=== PATIENT | male | born 1995 ===

== ENCOUNTER 2021-12-31 17:18 | Inpatient (IN) | payer MEDICAID ==
[2021-12-31] MEDS ORDERED: MAGNESIUM HYDROXIDE 2,400 MG/10 ML CUP PO PRN (19:08)
[2021-12-31] MEDS ORDERED: OLANZapine 5 MG TAB PO PRN (19:11)
[2021-12-31] MEDS ORDERED: OLANZapine 10 MG VIAL IM PRN (19:11)
--- NOTE | 2022-01-01 04:28 | P.MDCNMH ---
History of Present Illness H&P Date: 01/01/22 Chief Complaint: Suicidal ideation 26-year-old male with history of asthma and depression Patient comes in due to suicidal ideation. Patient doesn't go over details however he is requesting inhalers for his history of asthma. When asked he reports that he rarely uses inhalers however he feels that his chest is tight and requesting some inhalers. Otherwise he denies any coughing fevers chills nausea vomiting sore throat and runny nose. Denies any abdominal pain changes in bowel urinary habits denies any GI bleeding Review of Systems Pertinent positives as noted in HPI. All other systems were reviewed and are negative Past Medical History Past Medical History: Asthma Additional Past Medical History / Comment(s): unknown; pt is a poor historian History of Any Multi-Drug Resistant Organisms: Unobtainable Additional Past Surgical History / Comment(s): unknown; pt is a poor historian Additional Past Anesthesia/Blood Transfusion Reaction / Comment(s): unknown; pt is a poor historian Past Psychological History: Schizophrenia Smoking Status: Current every day smoker Past Alcohol Use History: Occasional Past Drug Use History: Marijuana Additional Drug Use History / Comment(s): UDDS + marijuana - Past Family History Family Additional Family Medical History / Comment(s): No reported heart disease or lung disease Medications and Allergies Home Medications Medication Instructions Recorded Confirmed Type No Known Home Medications 01/01/22 01/01/22 History Allergies Allergy/AdvReac Type Severity Reaction Status Date / Time No Known Allergies Allergy Verified 01/01/22 00:54 Physical Exam Vitals: Vital Signs Temp Pulse Resp BP Pulse Ox 01/01/22 00:08 97.1 F L 96 16 143/92 98 Intake and Output 12/31/21 12/31/21 01/01/22 14:59 22:59 06:59 Other: Weight 113.4 kg 111.782 kg Constitutional: No acute distress, Eyes: Anicteric sclerae, moist conjunctiva, Pupils equal round reactive to light ENMT: NC/AT Oropharynx clear, no erythema, or exudates Neck: Supple no masses, or JVD No carotid bruits No thyromegaly Lungs: Clear to auscultation Clear to percussion Normal respiratory effort, no accessory muscle use Cardiovascular: Heart regular in rate and rhythm, No murmurs, gallops, or rubs No peripheral edema Abdominal: Soft Nontender, no guarding, rebound or rigidity Abdomen moving with respiration Normoactive bowel sounds No hepatomegaly, No splenomegaly No palpable mass No abdominal wall hernia noted Skin: Normal temperature, tone, texture, turgor No induration No subcutaneous nodules No rash, lesions No ulcers Extremities: No digital cyanosis No clubbing Pedal pulses intact and symmetrical Radial pulses intact and symmetrical No calf tenderness Psychiatric: Alert and oriented to person, place and time Flat affect Neuro Muscles Strength 5/5 in all 4 extremities Sensation to light touch grossly present throughout Cranial nerves II-XII grossly intact No focal sensory deficits Cranial Nerve Examination - Cranial Nerves Cranial Nerve II- Optic: Intact Cranial Nerve III- Oculomotor: Intact Cranial Nerve IV- Trochlear: Intact Cranial Nerve V- Trigeminal: Intact Cranial Nerve - Abducens: Intact Cranial Nerve VII- Facial: Intact Cranial Nerve VIII- Auditory: Intact Cranial Nerve IX- Glossopharyngeal: Intact Cranial Nerve X- Vagus: Intact Cranial Nerve XI- Accessory: Intact Cranial Nerve XII- Hypoglossal: Intact Assessment and Plan Assessment: Suicidal ideation and depression Management per psych Intermittent asthma Albuterol inhaler when necessary DVT prophylaxis ambulatory Tobacco smoking patient counseled to quit smoking Nicotine replacement therapy offered Follow-up labs Thank you for allowing us to participate in the care of this patient. We will follow peripherally. Do not hesitate to contact us with questions. Someone can be reached from the [facility] hospitalist group at all hours of the day at [phone].
[2022-01-01] MEDS ORDERED: ALBUTEROL INHALER 60 PUFF/8 GM INHALER (MHU) INHALATION PRN (04:29)
[2022-01-01] MEDS: hydrOXYzine pamoate 25 MG CAP PO PRN (05:33)
[2022-01-01] MEDS: NICOTINE 14MG/24HR PATCH TRANSDERM SCH (05:34)
[2022-01-01] MEDS: DIVALPROEX 500 MG TABLET.DR PO SCH ×2 (08:31→20:23)
[2022-01-01] MEDS ORDERED: DULoxetine HCL 20 MG CAPSULE.DR PO SCH (09:00)
[2022-01-01] MEDS ORDERED: BENZTROPINE MESYLATE 1 MG TAB PO SCH (09:00)
[2022-01-01] MEDS ORDERED: risperiDONE 2 MG TAB PO SCH (09:00)
[2022-01-01] MEDS: clonazePAM 1 MG TAB PO SCH ×3 (09:24→21:05)
[2022-01-01] MEDS: NICOTINE GUM (POLACRILEX) 2 MG GUM BUCCAL PRN ×2 (09:26→19:42)
[2022-01-01] MEDS ORDERED: cloZAPine 100 MG TAB PO SCH ×2 (10:00→21:00)
[2022-01-01 10:26] LABS: Basophils % (A) 0 %; Eosinophils # (A) 0.1 k/uL (0-0.7); Eosinophils % (A) 1 %; HCT 44.9 % (39.0-53.0); HGB 14.2 gm/dL (13.0-17.5); Lymphocytes # (A) 1.9 k/uL (1.0-4.8); Lymphocytes % (A) 31 %; MCH 28.9 pg (25.0-35.0); MCHC 31.6 g/dL (31.0-37.0); MCV 91.5 fL (80.0-100.0); Monocytes # (A) 0.6 k/uL (0-1.0); Monocytes % (A) 9 %; Neutrophils # (A) 3.5 k/uL (1.3-7.7); Neutrophils % (A) 57 %; Platelet Count 325 k/uL (150-450); RBC 4.91 m/uL (4.30-5.90); RDW 12.3 % (11.5-15.5); WBC 6.2 k/uL (3.8-10.6)
[2022-01-01] MEDS: ACETAMINOPHEN TAB 325 MG TAB PO PRN (10:35)
[2022-01-01 10:37] LABS: ALT 83 U/L (4-49); AST 59 U/L (17-59); African American GFR (CKD) >90 (>60 ml/min/1.73 sqM); Albumin 4.7 g/dL (3.5-5.0); Alkaline Phosphatase 34 U/L (38-126); Anion Gap 13 mmol/L; Bilirubin, Delta 0.1 mg/dL (0.0-0.2); Bilirubin,Unconjugated 0.7 mg/dL (0.0-1.1); Blood Urea Nitrogen 13 mg/dL (9-20); Calcium 9.5 mg/dL (8.4-10.2); Carbon Dioxide 23 mmol/L (22-30); Chloride 104 mmol/L (98-107); Glucose 94 mg/dL (74-99); Non-African American GFR(CKD) >90 (>60 ml/min/1.73 sqM); Potassium 4.6 mmol/L (3.5-5.1); Sodium 140 mmol/L (137-145); Total Bilirubin 0.8 mg/dL (0.2-1.3); Total Protein 6.9 g/dL (6.3-8.2)
[2022-01-01 10:42] LABS: Valproic Acid (Depakene) 63.4 ug/mL
[2022-01-01] MEDS ORDERED: chlorproMAZINE 25 MG/ML 1 ML AMP IM PRN (10:43)
[2022-01-01] MEDS ORDERED: chlorproMAZINE 25 MG TAB PO PRN (10:43)
--- NOTE | 2022-01-01 11:08 | P.HP ---
Psychiatric H&P - . H&P Date: 01/01/22 History & Physical: Allergies Allergy/AdvReac Type Severity Reaction Status Date / Time No Known Allergies Allergy Verified 01/01/22 00:54 Vital Signs Temp 97.1 F L 01/01/22 00:08 Pulse 96 01/01/22 00:08 Resp 16 01/01/22 00:08 BP 143/92 01/01/22 00:08 Pulse Ox 98 01/01/22 00:08 FiO2 Intake & Output 12/31/21 01/01/22 01/01/22 18:59 06:59 18:59 Weight 111.782 kg Laboratory Last Values WBC 6.2 k/uL (3.8-10.6) 01/01/22 09:32 RBC 4.91 m/uL (4.30-5.90) 01/01/22 09:32 Hgb 14.2 gm/dL (13.0-17.5) 01/01/22 09:32 Hct 44.9 % (39.0-53.0) 01/01/22 09:32 MCV 91.5 fL (80.0-100.0) 01/01/22 09:32 MCH 28.9 pg (25.0-35.0) 01/01/22 09:32 MCHC 31.6 g/dL (31.0-37.0) 01/01/22 09:32 RDW 12.3 % (11.5-15.5) 01/01/22 09:32 Plt Count 325 k/uL (150-450) 01/01/22 09:32 MPV 7.0 01/01/22 09:32 Neutrophils % 57 % 01/01/22 09:32 Lymphocytes % 31 % 01/01/22 09:32 Monocytes % 9 % 01/01/22 09:32 Eosinophils % 1 % 01/01/22 09:32 Basophils % 0 % 01/01/22 09:32 Neutrophils # 3.5 k/uL (1.3-7.7) 01/01/22 09:32 Lymphocytes # 1.9 k/uL (1.0-4.8) 01/01/22 09:32 Monocytes # 0.6 k/uL (0-1.0) 01/01/22 09:32 Eosinophils # 0.1 k/uL (0-0.7) 01/01/22 09:32 Basophils # 0.0 k/uL (0-0.2) 01/01/22 09:32 Sodium 140 mmol/L (137-145) 01/01/22 09:32 Potassium 4.6 mmol/L (3.5-5.1) 01/01/22 09:32 Chloride 104 mmol/L (98-107) 01/01/22 09:32 Carbon Dioxide 23 mmol/L (22-30) 01/01/22 09:32 Anion Gap 13 mmol/L 01/01/22 09:32 BUN 13 mg/dL (9-20) 01/01/22 09:32 Creatinine 0.88 mg/dL (0.66-1.25) 01/01/22 09:32 Est GFR (CKD-EPI)AfAm >90 (>60 ml/min/1.73 sqM) 01/01/22 09:32 Est GFR (CKD-EPI)NonAf >90 (>60 ml/min/1.73 sqM) 01/01/22 09:32 Glucose 94 mg/dL (74-99) 01/01/22 09:32 Calcium 9.5 mg/dL (8.4-10.2) 01/01/22 09:32 Total Bilirubin 0.8 mg/dL (0.2-1.3) 01/01/22 09:32 Conjugated Bilirubin 0.0 mg/dL (0.0-0.3) 01/01/22 09:32 Unconjugated Bilirubin 0.7 mg/dL (0.0-1.1) 01/01/22 09:32 Delta Bilirubin 0.1 mg/dL (0.0-0.2) 01/01/22 09:32 AST 59 U/L (17-59) 01/01/22 09:32 ALT 83 U/L (4-49) H 01/01/22 09:32 Alkaline Phosphatase 34 U/L (38-126) L 01/01/22 09:32 Total Protein 6.9 g/dL (6.3-8.2) 01/01/22 09:32 Albumin 4.7 g/dL (3.5-5.0) 01/01/22 09:32 TSH 2.460 mIU/L (0.465-4.680) 01/01/22 09:32 Valproic Acid 63.4 ug/mL 01/01/22 09:32 01/01/22 11:07 IDENTIFYING DATA: Patient is a single, unemployed, 26-year-old male with significant history of developmental disability who has a guardian who was transferred from [facility] for suicidal ideation and psychosis. HPI: Patient presented to this hospital on 01/01/2022 after initially presenting at [facility] for psychiatric evaluation. Reportedly, the patient was endorsing suicidal ideation after a verbal altercation with his mother and decided to go to the hospital. He endorsed suicidal thoughts and during his initial assessment there, the patient was noted to be expressing significant psychotic symptoms. He was petitioned and certified. As per certificate, "patient suffers from schizophrenia and is psychotic with rambling thoughts and at times feel suicidal. He is noncompliant with psychiatric medications." Once admitted on the psychiatric unit, the patient was initially noted to be irritable in the milieu and was physically intrusive with another peer. He was however redirected and administered IM medication. On evaluation by this provider, the patient reports that he was staying at home with his mother however felt that he was very annoyed by her and her constant nagging. He states that he felt suicidal and decided to come to the hospital. He is otherwise not reporting any depressive symptoms. It is unclear as to how many times the patient has attempted suicide in the past. He does however appear to be responding to internal stimuli and states that he hears "6 voices." He refuses to further elaborate and appears to be laughing during the psychiatric interview and is difficult to redirect. Patient does admit that he has been non-adherent with any treatment in the outpatient setting and has been non- adherent with any medications. As per pharmacy review, the patient is reportedly not had any of his psychotropic medications filled in 2021 aside from the Cymbalta. A second clinical certificate has been filled out by this provider. PAST PSYCHIATRIC HISTORY: Patient states that he has been recently diagnosed with schizophrenia. The patient's home medications include Cymbalta, Risperdal, and Clozaril however the patient has not had any medications filled in 2021 aside from Cymbalta. The patient has reportedly had multiple inpatient psychiatric admissions however we're uncertain as to his last admission. The patient is not currently open with any outpatient psychiatric services. Unable to determine previous suicide attempts. PMH: Past Medical History: Asthma Additional Past Medical History / Comment(s): unknown; pt is a poor historian History of Any Multi-Drug Resistant Organisms: Unobtainable Additional Past Surgical History / Comment(s): unknown; pt is a poor historian Additional Past Anesthesia/Blood Transfusion Reaction / Comment(s): unknown; pt is a poor historian Past Psychological History: Schizophrenia Smoking Status: Current every day smoker Past Alcohol Use History: Occasional Past Drug Use History: Marijuana Additional Drug Use History / Comment(s): UDDS + marijuana ALLERGIES: NO KNOWN DRUG ALLERGIES CHEMICAL DEPENDENCY HISTORY: The patient reports smoking half pack per day. He also was reportedly using marijuana daily. No other drug use or substance use disorders are reported. FAMILY PSYCHIATRIC/SUBSTANCE USE HISTORY: Unknown SOCIAL HISTORY: Patient is currently living with his mother who is his guardian. He is single, never , and has no children. MENTAL STATUS EXAM: General Appearance: Patient appears to be stated age is alert, directable, and attempts to cooperate. Patient appears to have very poor hygiene and grooming. Obese body habitus. Behavior: Patient displays psychomotor agitation. Speech: Patient's speech is hyperverbal, tangential, however monotone. Mood/Affect: Patient reports their mood is "I need to go home." Affect is childlike. Suicidality/Homicidality: Patient is currently denying any suicidal or homicidal ideation. Perceptions: Patient denies any visual hallucinations however he endorses auditory hallucinations. Though content/process: The patient appears to be responding to internal stimuli. He is also fixated on smoking cigarettes. Memory and concentration: AOX3, grossly intact for the purposes of this session. Can spell "WORLD" backwards Judgment and insight: Very poor STRENGTHS/WEAKNESSES: Unable to identify patient's strengths at this time. Weakness is that the patient is nonadherent with treatment. INTELLECT: Below average IMPRESSIONS: Schizophrenia Developmental disability Tobacco use disorder Cannabis use disorder PLAN: -Patient is admitted under involuntary status to [facility] for stabilization of psychiatric symptoms and safety. A second certification was completed and along with petition will be filed for court. -Medications : Will start patient on Risperdal 3 mg by mouth twice a day for psychosis/mood stabilization with plans to transition to Invega Sustenna. Depakote 500 mg by mouth twice a day for mood stabilization Klonopin 1 mg by mouth 3 times a day for acute anxiety/agitation Discontinue Cymbalta due to concerns for polypharmacy. We will discontinue Clozaril and Cogentin as the patient has not taken this medication over the past year. -Vistaril and Thorazine PRN for agitation/aggression -Patient was counselled on substance abuse -Patient was informed of the risks, benefits and side effects of the medication and patient verbally consented to taking the medications. Patient signed med consent form and was placed in chart. -Internal Medicine consult to perform medical evaluation and physical. -NRT - nicotine patch and Nicorette gum -SW on board for discharge planning. Encourage patient to participate in groups to work on coping skills. 01/01/22 11:07
[2022-01-01 15:16] LABS: Chol/HDL Ratio 4.54 Ratio; LDL Cholesterol,Calculated 87.2 mg/dL (0.0-131.0)
[2022-01-01] MEDS ORDERED: chlorproMAZINE 25 MG/ML 2 ML AMP IM PRN (16:35)
[2022-01-01] MEDS: hydrOXYzine HCL 50 MG/ML 1 ML VIAL IM PRN (16:39)
[2022-01-01] MEDS: risperiDONE 1 MG TAB PO SCH (20:23)
[2022-01-01] MEDS ORDERED: chlorproMAZINE 25 MG/ML 1 ML AMP IM STA (20:53)
[2022-01-02] MEDS: chlorproMAZINE 25 MG/ML 1 ML AMP IM PRN (04:22)
[2022-01-02] MEDS: hydrOXYzine HCL 50 MG/ML 1 ML VIAL IM PRN (04:24)
[2022-01-02] MEDS: clonazePAM 1 MG TAB PO SCH ×3 (08:16→21:03)
[2022-01-02] MEDS: DIVALPROEX 500 MG TABLET.DR PO SCH ×2 (08:16→20:01)
[2022-01-02] MEDS: risperiDONE 1 MG TAB PO SCH ×2 (08:16→20:01)
[2022-01-02] MEDS: NICOTINE 14MG/24HR PATCH TRANSDERM SCH (08:17)
[2022-01-02] MEDS ORDERED: cloZAPine 100 MG TAB PO SCH (09:00)
[2022-01-02] MEDS: NICOTINE GUM (POLACRILEX) 2 MG GUM BUCCAL PRN ×2 (09:20→14:00)
[2022-01-02] MEDS: hydrOXYzine pamoate 25 MG CAP PO PRN ×2 (10:56→19:56)
[2022-01-02] MEDS ORDERED: chlorproMAZINE 25 MG/ML 2 ML AMP IM PRN (12:07)
[2022-01-02] MEDS: chlorproMAZINE 25 MG TAB PO PRN ×2 (15:02→22:47)
[2022-01-02] MEDS: ACETAMINOPHEN TAB 325 MG TAB PO PRN (21:03)
[2022-01-03] MEDS: hydrOXYzine pamoate 25 MG CAP PO PRN (02:24)
[2022-01-03] MEDS: NICOTINE GUM (POLACRILEX) 2 MG GUM BUCCAL PRN ×5 (03:22→17:05)
[2022-01-03] MEDS: chlorproMAZINE 25 MG/ML 1 ML AMP IM PRN (05:00)
[2022-01-03] MEDS: risperiDONE 1 MG TAB PO SCH ×2 (08:49→20:07)
[2022-01-03] MEDS: DIVALPROEX 500 MG TABLET.DR PO SCH ×2 (08:49→20:08)
[2022-01-03] MEDS: clonazePAM 1 MG TAB PO SCH ×3 (08:57→21:00)
[2022-01-03] MEDS: MAG HYDROX/AL HYDROX/SIMETH 30 ML CUP PO PRN (11:33)
--- NOTE | 2022-01-03 11:35 | P.PN ---
Subjective Progress Note Date: 01/03/22 Principal diagnosis: Diagnosis: schizophrenia Subjective: It was very hard to understand anything he said first he mumbles then he rambles. He not only has flight of ideas he almost has word salad, none of his thoughts fit together. The best I could tell he doesn't understand why he can't go home. Objective: The patient was pacing the halls intrusive, looked sleepy, and mum bled when he talked. We had increased his Thorazine and he may be a little bit more sleepy but is hard to tell if it's helping at all with his logic or self- control or orientation.. He had no eye contact. Self-care was minimal. nursing observations:Patient continuing with increased aggression. Patient told global technical writer "you're maris you're a female or I'd beat your a". Patient was refusing to be redirected.Patient was trying to get into another patient's room. Patient had the other patient's bedroom door open and was arguing with the other patient. Home Visitor told patient to go to his room. Patient went around the corner and came running back making verbal and hand/arm gestures as if he was shooting up the other patient's room. He is somewhat aware that he is not doing well and even approached staff to ask for a medication "to calm him down". Assessment still not doing very well at all. Plan continue was a high dose of Thorazine hoping it will begin to kick in any further increase and he would be falling asleep in the [place]. Objective - Vital Signs Vital signs: Vital Signs Temp 97.6 F 01/03/22 02:29 Pulse 122 H 01/03/22 02:29 Resp 16 01/03/22 02:29 BP 109/66 01/03/22 02:29 Pulse Ox 96 01/03/22 02:29 FiO2 - Labs CBC & Chem 7: 01/01/22 09:32 01/01/22 09:32
[2022-01-03] MEDS: NICOTINE 14MG/24HR PATCH TRANSDERM SCH (14:48)
[2022-01-03] MEDS: ACETAMINOPHEN TAB 325 MG TAB PO PRN (19:32)
[2022-01-03] MEDS: chlorproMAZINE 25 MG TAB PO PRN (20:07)
[2022-01-04] MEDS: hydrOXYzine pamoate 25 MG CAP PO PRN ×3 (03:26→22:19)
[2022-01-04] MEDS: chlorproMAZINE 25 MG TAB PO PRN (03:30)
[2022-01-04] MEDS: NICOTINE GUM (POLACRILEX) 2 MG GUM BUCCAL PRN ×3 (05:28→20:57)
[2022-01-04] MEDS: risperiDONE 1 MG TAB PO SCH (09:22)
[2022-01-04] MEDS ORDERED: chlorproMAZINE 25 MG TAB PO PRN (09:22)
[2022-01-04] MEDS: NICOTINE 14MG/24HR PATCH TRANSDERM SCH (09:22)
[2022-01-04] MEDS: DIVALPROEX 500 MG TABLET.DR PO SCH (09:22)
[2022-01-04] MEDS ORDERED: chlorproMAZINE 25 MG/ML 1 ML AMP IM PRN (09:22)
[2022-01-04] MEDS: clonazePAM 1 MG TAB PO SCH (09:22)
--- NOTE | 2022-01-04 11:18 | P.PN ---
Progress Note - Text Progress Note Date: 01/04/22 Interval History: Patient was seen wandering the hallways and was directable and agreeable to speak with senior technical writer in the office. The patient received approximately 200 mg IM of Thorazine over the last 8 hours prior to speaking with this provider. The patient was quite sedated and somnolent during the psychiatric interview. As per nursing report, the patient has been intermittently agitated and difficult to redirect requiring the administration of IM medication. He has been noted by staff to be aggressive towards other patients and has verbalized threats towards others. He is unable to fully participate in the psychiatric interview today but states his provider "just give me the Maria M valle so I can get out of this bi*ch." Mental Status Exam: General Appearance: Patient appears to be stated age, obese body habitus, difficult to direct, and somnolent. Behavior: Patient appears quite somnolent and begin sleeping while seated in the chair in the interview room. Speech: Patient's speech is slurred. Mood/Affect: Mood is "annoyed," affect is somnolent. Suicidality/Homicidality: Could not assess Perceptions: Could not assess Though content/process: Could not assess Memory and concentration: AOX3, grossly intact for the purposes of this session Judgment and insight: Very poor Vital Signs Temp 97.6 F 01/03/22 02:29 Pulse 122 H 01/03/22 02:29 Resp 16 01/03/22 02:29 BP 109/66 01/03/22 02:29 Pulse Ox 96 01/03/22 02:29 FiO2 Assessment Schizophrenia Developmental disability Tobacco use disorder Cannabis use disorder Plan: -Patient continues to meet criteria for inpatient psychiatric admission for symptom stabilization and safety. Patient has been petitioned and certified. -Medications: Increase Risperdal to 4 mg by mouth twice a day for psychosis/mood stabilization Increase Depakote to 750 mg by mouth twice a day for mood stabilization Discontinue Klonopin due to concerns for per paradoxical reaction -When necessary Ativan and Thorazine for agitation/aggression. -NRT - nicotine patch and Nicorette gum -SW on board for discharge planning. Encouraged the patient to participate in milieu.
[2022-01-04] MEDS: risperiDONE 2 MG TAB PO SCH (20:00)
[2022-01-04] MEDS: DIVALPROEX 250 MG TABLET.DR PO SCH (20:01)
[2022-01-05] MEDS: NICOTINE GUM (POLACRILEX) 2 MG GUM BUCCAL PRN ×2 (03:03→21:32)
[2022-01-05] MEDS: risperiDONE 2 MG TAB PO SCH ×2 (07:58→20:49)
[2022-01-05] MEDS: NICOTINE 14MG/24HR PATCH TRANSDERM SCH (07:58)
[2022-01-05] MEDS: DIVALPROEX 250 MG TABLET.DR PO SCH ×2 (07:59→20:49)
--- NOTE | 2022-01-05 11:03 | P.PN ---
Progress Note - Text Progress Note Date: 01/05/22 Interval History: Patient was seen wandering the hallways and was directable and agreeable to speak with leader writer in the office. Patient continues to require the administration of IM medications due to agitation and attempts to elope the psychiatric unit. He has been difficult to redirect by staff. Again during this evaluation today, the patient has noted to be quite somnolent but not a somnolent yesterday. Some of his words appeared to be slurred and the history is difficult to elicit. However, the patient is denying any suicidal or homicidal ideation, intention, and/or plan. He is not reporting any auditory or visual hallucinations. He is not reporting any paranoia or other delusions however has poor comprehension of the reality around him and his need for psychiatric hospitalization. He has been adherent with his medication and is not reporting any significant side effects. The patient has been noted to be sleeping poorly, approximating only a few hours of sleep per night. There is also concerned that the patient has sleep apnea. Mental Status Exam: General Appearance: Patient appears to be stated age, obese body habitus, difficult to direct, and somnolent. Behavior: Patient appears somnolent but not as somnolent and is yesterday. Speech: Patient's speech is slurred. Mood/Affect: Mood is "just give me the shot so I can go," affect is irritable. Suicidality/Homicidality: Patient denies any suicidal or homicidal ideation. Perceptions: Patient denies any auditory or visual hallucinations. Though content/process: [place]. Patient is not reporting any overt delusional thought content. Memory and concentration: AOX3, grossly intact for the purposes of this session Judgment and insight: Very poor Vital Signs Temp 97.9 F 01/05/22 03:04 Pulse 124 H 01/05/22 03:04 Resp 16 01/05/22 03:04 BP 141/79 01/05/22 03:04 Pulse Ox 100 01/05/22 03:04 FiO2 Assessment Schizophrenia Developmental disability Tobacco use disorder Cannabis use disorder Plan: -Patient continues to meet criteria for inpatient psychiatric admission for symptom stabilization and safety. Patient has been petitioned and certified. -Medications: Continue Risperdal to 4 mg by mouth twice a day for psychosis/mood stabilization Continue Depakote to 750 mg by mouth twice a day for mood stabilization Start Trazodone 100 mg at bedtime for insomnia -EKG ordered as patient received numerous IM antipsychotics. -When necessary Ativan and Thorazine for agitation/aggression. Thorazine decreased to 50 mg. -NRT - nicotine patch and Nicorette gum -SW on board for discharge planning. Encouraged the patient to participate in milieu.
[2022-01-05] MEDS: ACETAMINOPHEN TAB 325 MG TAB PO PRN (12:32)
--- NOTE | 2022-01-05 12:55 | P.PN ---
Subjective Progress Note Date: 01/02/22 Principal diagnosis: Diagnosis: schizophrenia Subjective: It was very hard to understand anything he said first he mumbles then he rambles. The best I could tell he doesn't understand why he can't go home. Objective: The patient was pacing the halls intrusive, looked sleepy, and mumbled when he talked. An example of his speech was, "they make me clean, I was cleaning all night, I had to defend people, see my arm." When asked him what he meant by all that he rambled off in another direction then got up and walked out of the session. Last night he became so aggressive and agitated that we had to give a next her dose of Thorazine when necessary. He had no eye contact. Self-care was minimal. Last night he was cursing and threatening staff and attempted to stuff things in the toilet so he could flood the place demanding to be let out. Assessment still not doing very well at all. Plan continue to cover when necessary. Objective - Vital Signs Vital signs: Vital Signs Temp 97.8 F 01/02/22 05:37 Pulse 127 H 01/02/22 05:37 Resp 16 01/02/22 05:37 BP 143/92 01/01/22 00:08 Pulse Ox 96 01/02/22 05:37 FiO2 - Labs CBC & Chem 7: 01/01/22 09:32 01/01/22 09:32 Labs: Abnormal Lab Results - Last 24 Hours (Table) 01/01/22 Range/Units 09:32 ALT 83 H (4-49) U/L Alkaline Phosphatase 34 L (38-126) U/L HDL Cholesterol 32.80 L (40.00-60.00) mg/dL
[2022-01-05] MEDS: hydrOXYzine pamoate 25 MG CAP PO PRN (16:34)
[2022-01-05] MEDS ORDERED: traZODone HCL 100 MG TAB PO SCH (21:00)
[2022-01-06] MEDS ORDERED: HALOPERIDOL LACTATE 5 MG/ML 1 ML VIAL IM ONE (01:29)
[2022-01-06] MEDS ORDERED: diphenhydrAMINE 50 MG/ML 1 ML VIAL IM ONE (01:30)
[2022-01-06] MEDS ORDERED: LORazepam 2 MG/ML INJ IM ONE (01:30)
[2022-01-06] MEDS: DIVALPROEX 250 MG TABLET.DR PO SCH (09:20)
[2022-01-06] MEDS: NICOTINE 14MG/24HR PATCH TRANSDERM SCH (09:20)
[2022-01-06] MEDS: risperiDONE 2 MG TAB PO SCH (09:20)
[2022-01-06] MEDS ORDERED: PALIPERIDONE IM 234 MG/1.5 ML SYG IM STA (09:41)
--- NOTE | 2022-01-06 12:23 | P.PN ---
Progress Note - Text Progress Note Date: 01/06/22 Interval History: Patient was seen wandering the hallways and was directable and agreeable to speak with board writer in the office. The patient continues to require the administration of medications for agitation. He has been noted to be sleeping very poorly. It is noted that he only receives approximately 3 hours of sleep per night. He continues to be intrusive with peers. He is currently denying any suicidal or homicidal ideation. He reports no auditory or visual hallucinations. He denies any paranoia or other delusions. The patient continues to wish for discharge. He is however directable today. Mental Status Exam: Patient continues to present as somnolent. General Appearance: Patient appears to be stated age, obese body habitus, more directable, but somnolent. Behavior: Patient appears somnolent but not as somnolent and is yesterday. Speech: Patient's speech is slurred. Mood/Affect: Mood is "just tired." affect is somnolent. Suicidality/Homicidality: Patient denies any suicidal or homicidal ideation. Perceptions: Patient denies any auditory or visual hallucinations. Though content/process: [place]. Patient is not reporting any overt delusional thought content. Memory and concentration: AOX3, grossly intact for the purposes of this session Judgment and insight: Very poor Vital Signs Temp 97.7 F 01/06/22 09:23 Pulse 103 H 01/06/22 09:23 Resp 14 01/06/22 09:23 BP 127/80 01/06/22 09:23 Pulse Ox 97 01/06/22 09:23 FiO2 Assessment Schizophrenia Developmental disability Tobacco use disorder Cannabis use disorder Plan: -Patient continues to meet criteria for inpatient psychiatric admission for symptom stabilization and safety. Patient has been petitioned and certified. Court is scheduled for 01/12/2022. -Medications: Discontinue Risperdal. We will administer Invega Sustenna 234 mg IM today. Change Depakote to 1500 mg by mouth at bedtime for mood stabilization Increase Trazodone to 200 mg at bedtime for insomnia -EKG ordered as patient received numerous IM antipsychotics. -When necessary Thorazine and Vistaril for agitation/aggression. Our concern is that benzodiazepines may contribute to the patient's sleep apnea. -NRT - nicotine patch and Nicorette gum -SW on board for discharge planning. Encouraged the patient to participate in milieu.
[2022-01-06] MEDS: hydrOXYzine pamoate 25 MG CAP PO PRN (12:44)
[2022-01-06] MEDS: NICOTINE GUM (POLACRILEX) 2 MG GUM BUCCAL PRN (14:52)
[2022-01-06] MEDS: ACETAMINOPHEN TAB 325 MG TAB PO PRN (17:01)
[2022-01-06 17:39] LABS: Glucose,Whole Blood 84 mg/dL (70-110)
[2022-01-06] MEDS: traZODone HCL 100 MG TAB PO SCH (21:07)
[2022-01-06] MEDS: DIVALPROEX ER 500 MG TAB.ER.24H PO SCH (21:08)
[2022-01-06] MEDS: MELATONIN 5 MG TABLET PO SCH (21:08)
[2022-01-06] MEDS: chlorproMAZINE 25 MG/ML 1 ML AMP IM PRN (21:28)
[2022-01-06] MEDS: hydrOXYzine HCL 50 MG/ML 1 ML VIAL IM PRN (21:29)
[2022-01-07] MEDS: NICOTINE 14MG/24HR PATCH TRANSDERM SCH (09:22)
--- NOTE | 2022-01-07 10:04 | P.PN ---
Progress Note - Text Progress Note Date: 01/07/22 Interval History: Patient was seen wandering the hallways and was directable and agreeable to speak with marketing writer in the office. The patient continues to be noted by staff to be very intrusive with peers. He was noted to be female patient was redirected back to his room. The patient has had improved sleep last night. Currently, he is not reporting any suicidal or homicidal ideation, intention, and/or plan. He is not reporting any auditory or visual hallucinations. The patient has been adherent with his medications and is not reporting any significant side effects at this time. He did receive Invega Sustenna yesterday. Mental Status Exam: General Appearance: Patient appears to be stated age is alert, directable, and cooperative. Behavior: Patient is calmly seated without any agitated behavior. Speech: Patient's speech is slurred and at times difficult to understand. Nonlinear. Mood/Affect: Mood is improving mildly, affect is congruent and constricted. Suicidality/Homicidality: Patient denies having any suicidal or homicidal ideation intent or plan. Perceptions: Patient denies any visual hallucinations and denies any auditory hallucinations Though content/process: There is no evidence of any delusional thought content and thought process is linear and goal-directed. [place]. Memory and concentration: AOX3, grossly intact for the purposes of this session Judgment and insight: Improving mildly Vital Signs Temp 97.7 F 01/06/22 09:23 Pulse 103 H 01/06/22 09:23 Resp 14 01/06/22 09:23 BP 127/80 01/06/22 09:23 Pulse Ox 97 01/06/22 09:23 FiO2 Laboratory Results - Last 24 Hours 01/06/22 17:31 POC Glucose (mg/dL) 84 POC Glu Rack Cleaner ID Cora Montesinos Assessment Schizophrenia Developmental disability Tobacco use disorder Cannabis use disorder Plan: -Patient continues to meet criteria for inpatient psychiatric admission for symptom stabilization and safety. Patient is scheduled for court on 01/12/2022. -Medications: Invega Sustenna 234 mg IM was administered on 01/06/2022. Next dose will be administered on 01/11/2022. Continue Depakote 1500 mg by mouth at bedtime for mood stabilization Continue Trazodone 200 mg at bedtime for insomnia Cogentin 1 mg by mouth twice a day for EPS side effects. -When necessary Thorazine and Vistaril for agitation/aggression. Our concern is that benzodiazepines may contribute to the patient's sleep apnea. -EKG reviewed. Sinus tachycardia with a QTC within normal limits. -NRT - nicotine patch and Nicorette gum -SW on board for discharge planning. Encouraged the patient to participate in milieu.
[2022-01-07] MEDS: hydrOXYzine pamoate 25 MG CAP PO PRN ×2 (12:00→19:27)
[2022-01-07] MEDS: NICOTINE GUM (POLACRILEX) 2 MG GUM BUCCAL PRN (15:49)
[2022-01-07] MEDS: traZODone HCL 100 MG TAB PO SCH (20:18)
[2022-01-07] MEDS: BENZTROPINE MESYLATE 1 MG TAB PO SCH (20:18)
[2022-01-07] MEDS: MELATONIN 5 MG TABLET PO SCH (20:18)
[2022-01-07] MEDS: DIVALPROEX ER 500 MG TAB.ER.24H PO SCH (20:18)
[2022-01-07] MEDS: chlorproMAZINE 25 MG TAB PO PRN (21:29)
[2022-01-08] MEDS: hydrOXYzine pamoate 25 MG CAP PO PRN ×3 (00:11→23:34)
[2022-01-08] MEDS: ACETAMINOPHEN TAB 325 MG TAB PO PRN ×2 (00:11→08:25)
[2022-01-08] MEDS: NICOTINE GUM (POLACRILEX) 2 MG GUM BUCCAL PRN ×4 (00:12→20:24)
[2022-01-08] MEDS: BENZTROPINE MESYLATE 1 MG TAB PO SCH ×2 (07:48→20:22)
[2022-01-08] MEDS: NICOTINE 14MG/24HR PATCH TRANSDERM SCH (07:48)
[2022-01-08] MEDS ORDERED: IBUPROFEN 600 MG TAB PO PRN (09:31)
--- NOTE | 2022-01-08 11:12 | P.PN ---
Progress Note - Text Progress Note Date: 01/08/22 Interval History: Patient was seen wandering the hallways and was directable and agreeable to speak with bid writer in the office. The patient requires frequent redirection however is redirectable. He continues to display poor insight as to the reasons for his admission as well as his length of stay. He was informed that he will have to stay until at least Tuesday as he is scheduled for mental health court at that time. He is currently denying any suicidal or homicidal ideation, intention, and/or plan. He is not reporting any auditory or visual hallucinations or other delusions. He has been adherent with his medications and is not reporting any significant side effects at this time. He is not reporting any medical issues are concerned denies any chest pain, shortness of breath, palpitations, or muscle tightness. He reports that he received about 4 hours of sleep last night. Mental Status Exam: Grossly unchanged from yesterday. General Appearance: Patient appears to be stated age is alert, directable, and cooperative. Behavior: Patient displays mildly elevated psychomotor activity. Speech: Patient's speech is slurred and at times difficult to understand. Nonlinear. Mood/Affect: Mood is improving mildly, affect is congruent and constricted. Suicidality/Homicidality: Patient denies having any suicidal or homicidal ideation intent or plan. Perceptions: Patient denies any visual hallucinations and denies any auditory hallucinations Though content/process: There is no evidence of any delusional thought content and thought process is linear and goal-directed. [place]. Memory and concentration: AOX3, grossly intact for the purposes of this session Judgment and insight: Improving mildly Vital Signs Temp 98.6 F 01/08/22 06:15 Pulse 104 H 01/08/22 06:15 Resp 16 01/08/22 06:15 BP 128/84 01/08/22 06:15 Pulse Ox 98 01/08/22 06:15 FiO2 Assessment Schizophrenia Developmental disability Tobacco use disorder Cannabis use disorder Plan: -Patient continues to meet criteria for inpatient psychiatric admission for symptom stabilization and safety. Patient is scheduled for court on 01/12/2022. -Medications: No medication changes were made today. Invega Sustenna 234 mg IM was administered on 01/06/2022. Next dose will be administered on 01/11/2022. Continue Depakote 1500 mg by mouth at bedtime for mood stabilization Continue Trazodone 200 mg at bedtime for insomnia Cogentin 1 mg by mouth twice a day for EPS side effects. -When necessary Thorazine and Vistaril for agitation/aggression. Our concern is that benzodiazepines may contribute to the patient's sleep apnea. -EKG reviewed. Sinus tachycardia with a QTC within normal limits. -NRT - nicotine patch and Nicorette gum -SW on board for discharge planning. Encouraged the patient to participate in milieu.
[2022-01-08] MEDS: chlorproMAZINE 25 MG TAB PO PRN ×2 (13:42→23:33)
[2022-01-08] MEDS: DIVALPROEX ER 500 MG TAB.ER.24H PO SCH (20:22)
[2022-01-08] MEDS: MELATONIN 5 MG TABLET PO SCH (20:22)
[2022-01-08] MEDS: traZODone HCL 100 MG TAB PO SCH (20:22)
[2022-01-09] MEDS: ACETAMINOPHEN TAB 325 MG TAB PO PRN (04:03)
[2022-01-09] MEDS: NICOTINE 14MG/24HR PATCH TRANSDERM SCH (09:10)
[2022-01-09] MEDS: BENZTROPINE MESYLATE 1 MG TAB PO SCH ×2 (09:10→21:11)
[2022-01-09] MEDS: hydrOXYzine pamoate 25 MG CAP PO PRN (14:41)
[2022-01-09] MEDS: NICOTINE GUM (POLACRILEX) 2 MG GUM BUCCAL PRN (17:04)
[2022-01-09] MEDS: chlorproMAZINE 25 MG TAB PO PRN (17:04)
--- NOTE | 2022-01-09 19:27 | P.PN ---
Progress Note - Text Progress Note Date: 01/09/22 Interval History: Patient was seen in his room were he was found pacing in his underwear and talking to himself. Insight and judgment are impaired. He is frustrated because today is January 09 and he believes he missed his birthday on [birth year], and is not receptive to education. He is irritable, intrusive and requires frequent redirection. He received Hydroxyzine 50 mg po x 1 for anxiety this afternoon, followed by Thorazine 50 mg po x 1 in the early evening for camila tation. Patient denies any visual hallucinations and denies any auditory hallucinations, but appears to be responding to internal stimuli. He has been compliant with his medications and denies any significant side effects at this time. Patient denies having any suicidal or homicidal ideation intent or plan. Mental Status Exam: General Appearance: Patient appears to be stated age, is obese, pacing in his underwear. Behavior: Patient is pacing in his room in his underwear, can be intrusive, agitated and require redirection at times. Speech: Patient's speech is slurred and difficult to understand. Mood/Affect: Mood is irritable, affect is congruent and constricted. Suicidality/Homicidality: Patient denies having any suicidal or homicidal ideation intent or plan. Perceptions: Patient denies any visual hallucinations and denies any auditory hallucinations, but appears to be responding to internal stimuli. Thought process: [place] Though content: There is no evidence of any delusional thought content. Memory and concentration: AOX2, grossly intact for the purposes of this session Judgment and insight: Poor Assessment: Schizophrenia Developmental disability Tobacco use disorder Cannabis use disorder Plan: -Patient continues to meet criteria for inpatient psychiatric admission for symptom stabilization and safety. Patient is scheduled for court on 01/12/2022. -Medications: Invega Sustenna 234 mg IM was administered on 01/06/2022. Next dose to be administered on 01/11/2022. Continue Depakote 1500 mg by mouth at bedtime for mood stabilization. Continue Trazodone 200 mg at bedtime for insomnia. Cogentin 1 mg by mouth twice a day for EPS side effects. -When necessary Thorazine and Vistaril for agitation/aggression. -NRT - nicotine patch and Nicorette gum
[2022-01-09] MEDS: DIVALPROEX ER 500 MG TAB.ER.24H PO SCH (21:11)
[2022-01-09] MEDS: MELATONIN 5 MG TABLET PO SCH (21:11)
[2022-01-09] MEDS: traZODone HCL 100 MG TAB PO SCH (21:11)
[2022-01-10] MEDS: chlorproMAZINE 25 MG TAB PO PRN ×3 (02:36→20:51)
[2022-01-10] MEDS: NICOTINE 14MG/24HR PATCH TRANSDERM SCH (07:56)
[2022-01-10] MEDS: BENZTROPINE MESYLATE 1 MG TAB PO SCH ×2 (08:19→20:51)
[2022-01-10] MEDS: NICOTINE GUM (POLACRILEX) 2 MG GUM BUCCAL PRN (15:54)
--- NOTE | 2022-01-10 20:38 | P.PN ---
Progress Note - Text Progress Note Date: 01/10/22 Interval History: Patient was seen in his room were he was found resting in bed and talking to himself. Insight and judgment are impaired. He appears calmer on assessment today as compared to yesterday; he did receive Thorazine 50 mg po x 1 earlier today for agitation and being intrusive. He continues to engage in self- dialogue, his thought process is nonsensical and speech is slurred and difficult to understand. He appears to ask me if I remember the "[place] He has been compliant with his medications and denies any significant side effects at this time. Patient denies having any suicidal or homicidal ideation intent or plan. Mental Status Exam: General Appearance: Patient appears to be stated age, is obese, dressed in casual attire Behavior: Patient is resting in his room, can be intrusive, agitated and require redirection at times. Speech: Patient's speech is slurred and difficult to understand. Mood/Affect: Mood is slightly improved today, affect is congruent and constricted. Suicidality/Homicidality: Patient denies having any suicidal or homicidal ideation intent or plan. Perceptions: Patient denies any visual hallucinations and denies any auditory hallucinations, but appears to be responding to internal stimuli. Thought process: [place] Though content: There is no evidence of any delusional thought content. Memory and concentration: AOX2, grossly intact for the purposes of this session Judgment and insight: Poor Assessment: Schizophrenia Developmental disability Tobacco use disorder Cannabis use disorder Plan: -Patient continues to meet criteria for inpatient psychiatric admission for symptom stabilization and safety. Patient is scheduled for court on 01/12/2022. -Medications: Invega Sustenna 234 mg IM was administered on 01/06/2022. Next dose to be administered on 01/11/2022. Continue Depakote 1500 mg by mouth at bedtime for mood stabilization. Continue Trazodone 200 mg at bedtime for insomnia. Cogentin 1 mg by mouth twice a day for EPS side effects. -When necessary Thorazine and Vistaril for agitation/aggression. -NRT - nicotine patch and Nicorette gum
[2022-01-10] MEDS: DIVALPROEX ER 500 MG TAB.ER.24H PO SCH (20:51)
[2022-01-10] MEDS: traZODone HCL 100 MG TAB PO SCH (20:51)
[2022-01-10] MEDS: MELATONIN 5 MG TABLET PO SCH (20:52)
[2022-01-10] MEDS: hydrOXYzine pamoate 25 MG CAP PO PRN (23:44)
[2022-01-11] MEDS: chlorproMAZINE 25 MG TAB PO PRN (04:44)
[2022-01-11] MEDS: hydrOXYzine pamoate 25 MG CAP PO PRN (04:44)
[2022-01-11] MEDS: BENZTROPINE MESYLATE 1 MG TAB PO SCH ×2 (07:45→20:16)
[2022-01-11] MEDS: NICOTINE 14MG/24HR PATCH TRANSDERM SCH (07:46)
[2022-01-11] MEDS ORDERED: PALIPERIDONE IM 156 MG/ML SYG IM STA (09:38)
--- NOTE | 2022-01-11 12:46 | P.PN ---
Progress Note - Text Progress Note Date: 01/11/22 Interval History: Patient was seen wandering the hallways and was directable and agreeable to speak with technical proposal writer in the office. The patient requires frequent redirection however is redirectable. The patient continues to occasionally present as irritable and will say inappropriate comments, usually of the sexual nature. He is however denying any suicidal or homicidal ideation. He reports no auditory or visual hallucinations. He denies any paranoia or other delusions. The patient reports that he is sleeping better. He has been in adherent with his medications and is not endorsing any significant side effects. Mental Status Exam: General Appearance: Patient appears to be stated age is alert, directable, and cooperative. Obese body habitus. Generally disheveled. Behavior: Patient displays mildly elevated psychomotor activity. Speech: Patient's speech is less slurred and more clear. Nonlinear and at times difficult to follow. Mood/Affect: Mood is improving mildly, affect is congruent and constricted. Suicidality/Homicidality: Patient denies having any suicidal or homicidal ideation intent or plan. Perceptions: Patient denies any visual hallucinations and denies any auditory hallucinations Though content/process: There is no evidence of any delusional thought content and thought process is nonlinear. [place]. Memory and concentration: AOX3, grossly intact for the purposes of this session Judgment and insight: Improving mildly Vital Signs Temp 96.5 F L 01/09/22 03:56 Pulse 97 01/09/22 03:56 Resp 16 01/09/22 03:56 BP 142/93 01/09/22 03:56 Pulse Ox 98 01/08/22 06:15 FiO2 Intake & Output 01/10/22 01/11/22 01/11/22 18:59 06:59 18:59 Weight 110 kg Assessment Schizophrenia Developmental disability Tobacco use disorder Cannabis use disorder Plan: -Patient continues to meet criteria for inpatient psychiatric admission for symptom stabilization and safety. Patient is scheduled for court on 01/12/2022. -Medications: No medication changes were made today. Invega Sustenna 234 mg IM was administered on 01/06/2022. Invega Sustenna 150 6. grams IM will be administered today. Continue Depakote 1500 mg by mouth at bedtime for mood stabilization Continue Trazodone 200 mg at bedtime for insomnia Cogentin 1 mg by mouth twice a day for EPS side effects. -When necessary Thorazine and Vistaril for agitation/aggression. Our concern is that benzodiazepines may contribute to the patient's sleep apnea. -CMP ordered. -NRT - nicotine patch and Nicorette gum -SW on board for discharge planning. Encouraged the patient to participate in milieu.
[2022-01-11 15:12] LABS: ALT 187 U/L (4-49); AST 111 U/L (17-59); African American GFR (CKD) >90 (>60 ml/min/1.73 sqM); Alkaline Phosphatase 32 U/L (38-126); Anion Gap 11 mmol/L; Blood Urea Nitrogen 11 mg/dL (9-20); Carbon Dioxide 24 mmol/L (22-30); Chloride 102 mmol/L (98-107); Glucose 99 mg/dL (74-99); Non-African American GFR(CKD) >90 (>60 ml/min/1.73 sqM); Potassium 4.1 mmol/L (3.5-5.1); Sodium 137 mmol/L (137-145); Total Bilirubin 0.4 mg/dL (0.2-1.3); Total Protein 6.1 g/dL (6.3-8.2)
[2022-01-11] MEDS: chlorproMAZINE 25 MG/ML 1 ML AMP IM PRN (17:10)
[2022-01-11] MEDS: traZODone HCL 100 MG TAB PO SCH (20:16)
[2022-01-11] MEDS: DIVALPROEX ER 500 MG TAB.ER.24H PO SCH (20:16)
[2022-01-11] MEDS: MELATONIN 5 MG TABLET PO SCH (20:17)
[2022-01-12] MEDS: NICOTINE GUM (POLACRILEX) 2 MG GUM BUCCAL PRN ×3 (07:11→22:02)
[2022-01-12] MEDS: BENZTROPINE MESYLATE 1 MG TAB PO SCH ×2 (08:14→20:31)
[2022-01-12] MEDS: NICOTINE 14MG/24HR PATCH TRANSDERM SCH (09:50)
[2022-01-12 10:47] LABS: Basophils % (A) 0 %; Eosinophils % (A) 0 %; HCT 43.2 % (39.0-53.0); HGB 14.3 gm/dL (13.0-17.5); Lymphocytes # (A) 1.5 k/uL (1.0-4.8); Lymphocytes % (A) 17 %; MCH 28.8 pg (25.0-35.0); MCV 87.3 fL (80.0-100.0); Mean Platelet Volume 7.4; Monocytes % (A) 11 %; Neutrophils % (A) 68 %; Platelet Count 325 k/uL (150-450); RBC 4.95 m/uL (4.30-5.90); RDW 12.5 % (11.5-15.5); WBC 8.7 k/uL (3.8-10.6)
--- NOTE | 2022-01-12 11:23 | P.PN ---
Progress Note - Text Progress Note Date: 01/12/22 Interval History: Patient was seen wandering the hallways and was directable and agreeable to speak with advertising copy writer in the office. The patient is more difficult to direct today. The patient did not sleep well last night. He is noted to be easily agitated and is disorganized. He attended court but was unable to maintain appropriate conduct. He continues to state bizarre and explicity comments. As per the patient's mother, he has done well with clozaril in the past and Claudy tends to decompensate in the fall as the anniversary of his sister's is January 23. Mental Status Exam: General Appearance: Patient appears to be stated age is alert, directable, and cooperative. Obese body habitus. Generally disheveled. Behavior: Patient displays elevated psychomotor activity. Speech: Patient's speech is less slurred and more clear. Nonlinear and at times difficult to follow. [place]. Mood/Affect: Mood is angry, affect is congruent and agitated. Suicidality/Homicidality: Patient denies having any suicidal or homicidal ideation intent or plan. Perceptions: Patient denies any visual hallucinations and denies any auditory hallucinations Though content/process: Patient appears to be grossly disorganized. Memory and concentration: AOX3, grossly intact for the purposes of this session Judgment and insight: Very poor Vital Signs Temp 96.5 F L 01/09/22 03:56 Pulse 97 01/09/22 03:56 Resp 16 01/09/22 03:56 BP 142/93 01/09/22 03:56 Pulse Ox 98 01/08/22 06:15 FiO2 Laboratory Results - Last 24 Hours 01/11/22 01/12/22 01/12/22 14:04 10:05 10:05 WBC 8.7 RBC 4.95 Hgb 14.3 Hct 43.2 MCV 87.3 MCH 28.8 MCHC 33.0 RDW 12.5 Plt Count 325 MPV 7.4 Neutrophils % 68 Lymphocytes % 17 Monocytes % 11 Eosinophils % 0 Basophils % 0 Neutrophils # 6.0 Lymphocytes # 1.5 Monocytes # 1.0 Eosinophils # 0.0 Basophils # 0.0 Sodium 137 Potassium 4.1 Chloride 102 Carbon Dioxide 24 Anion Gap 11 BUN 11 Creatinine 0.91 Est GFR (CKD-EPI)AfAm >90 Est GFR (CKD-EPI)NonAf >90 Glucose 99 Calcium 9.0 Total Bilirubin 0.4 AST 111 H ALT 187 H Alkaline Phosphatase 32 L Ammonia 36 H Total Protein 6.1 L Albumin 4.0 Assessment Schizophrenia Developmental disability Tobacco use disorder Cannabis use disorder Plan: -Patient continues to meet criteria for inpatient psychiatric admission for symptom stabilization and safety. Patient is scheduled for court on 01/12/2022. -Medications: No medication changes were made today. Invega Sustenna 234 mg IM was administered on 01/06/2022. Invega Sustenna 156 mg IM will be administered on 01/11/2022. We will start clozaril 25 mg twice daily for mood stabilization/psychosis. Decrease Depakote 750 mg by mouth at bedtime for mood stabilization due to elevated transaminases. Ammonia ordered. Continue Trazodone 200 mg at bedtime for insomnia Cogentin 1 mg by mouth twice a day for EPS side effects. -When necessary Thorazine and Vistaril for agitation/aggression. Our concern is that benzodiazepines may contribute to the patient's sleep apnea. -CMP ordered. -NRT - nicotine patch and Nicorette gum -SW on board for discharge planning. Encouraged the patient to participate in milieu.
[2022-01-12] MEDS: chlorproMAZINE 25 MG TAB PO PRN ×2 (12:54→22:11)
[2022-01-12] MEDS: hydrOXYzine pamoate 25 MG CAP PO PRN ×2 (12:54→22:11)
[2022-01-12] MEDS: DIVALPROEX ER 250 MG TAB.ER.24H PO SCH (20:31)
[2022-01-12] MEDS: cloZAPine 25 MG TAB PO SCH (20:31)
[2022-01-12] MEDS: traZODone HCL 100 MG TAB PO SCH (20:31)
[2022-01-12] MEDS: MELATONIN 5 MG TABLET PO SCH (20:31)
[2022-01-13] MEDS: MAG HYDROX/AL HYDROX/SIMETH 30 ML CUP PO PRN (04:01)
[2022-01-13] MEDS: chlorproMAZINE 25 MG/ML 1 ML AMP IM PRN (06:45)
[2022-01-13] MEDS: BENZTROPINE MESYLATE 1 MG TAB PO SCH ×2 (07:43→19:46)
[2022-01-13] MEDS: NICOTINE 14MG/24HR PATCH TRANSDERM SCH (07:43)
[2022-01-13] MEDS: cloZAPine 25 MG TAB PO SCH (07:44)
[2022-01-13] MEDS: hydrOXYzine pamoate 25 MG CAP PO PRN (10:12)
--- NOTE | 2022-01-13 11:55 | P.PN ---
Progress Note - Text Progress Note Date: 01/13/22 Interval History: Patient was seen wandering the hallways and was directable and agreeable to speak with typewriter aligner in the office. The patient continues to be impulsive and at times disorganized however is much more linear in conversation and redirectable today. He was reported to have slept well last night and has been eating his meals. He has been adherent with his medication is not endorsing any significant side effects. He continues to state some sexually explicit content in his words however is redirectable. He is currently denying any suicidal or homicidal ideation, intention, and/or plan. He is not reporting any auditory or visual hallucinations. He denies any paranoia or other delusions. Mental Status Exam: General Appearance: Patient appears to be stated age is alert, directable, and cooperative. Obese body habitus. Generally disheveled. Behavior: Patient displays normal psychomotor activity today. Speech: Patient's speech is spontaneous and clear today. Nonlinear and at times difficult to follow. [place]. Mood/Affect: Mood is "doing okay." Affect is expansive but euthymic. Suicidality/Homicidality: Patient denies having any suicidal or homicidal ideation intent or plan. Perceptions: Patient denies any visual hallucinations and denies any auditory hallucinations Though content/process: Patient appears to be grossly disorganized. This appears to be patient's baseline. Memory and concentration: AOX3, grossly intact for the purposes of this session Judgment and insight: Very poor Vital Signs Temp 97.7 F 01/13/22 03:45 Pulse 102 H 01/13/22 03:45 Resp 16 01/13/22 03:45 BP 154/83 01/13/22 03:45 Pulse Ox 99 01/13/22 03:45 FiO2 Assessment Schizophrenia Developmental disability Tobacco use disorder Cannabis use disorder Plan: -Patient continues to meet criteria for inpatient psychiatric admission for symptom stabilization and safety. Patient is scheduled for court on 01/12/2022. -Medications: Invega Sustenna 234 mg IM was administered on 01/06/2022. Invega Sustenna 156 mg IM will be administered on 01/11/2022. Increase Clozaril to 25 mg in the morning and 50 mg at bedtime for mood stabilization/psychosis Continue Depakote 750 mg by mouth at bedtime for mood stabilization Continue Trazodone 200 mg at bedtime for insomnia Cogentin 1 mg by mouth twice a day for EPS side effects. -When necessary Thorazine and Vistaril for agitation/aggression. Our concern is that benzodiazepines may contribute to the patient's sleep apnea. -CMP ordered. -NRT - nicotine patch and Nicorette gum -SW on board for discharge planning. Encouraged the patient to participate in milieu.
[2022-01-13] MEDS: chlorproMAZINE 25 MG TAB PO PRN (14:25)
[2022-01-13] MEDS ORDERED: chlorproMAZINE 25 MG/ML 1 ML AMP IM ONE (15:11)
[2022-01-13] MEDS ORDERED: diphenhydrAMINE 50 MG/ML 1 ML VIAL IM STA (15:12)
[2022-01-13 15:15] VITALS: BMI 38.0
[2022-01-13] MEDS: NICOTINE GUM (POLACRILEX) 2 MG GUM BUCCAL PRN ×2 (16:27→20:52)
[2022-01-13] MEDS: traZODone HCL 100 MG TAB PO SCH (19:46)
[2022-01-13] MEDS: DIVALPROEX ER 250 MG TAB.ER.24H PO SCH (19:46)
[2022-01-13] MEDS: MELATONIN 5 MG TABLET PO SCH (19:46)
[2022-01-13] MEDS ORDERED: ZIPRASIDONE 20 MG VIAL IM STA (20:19)
[2022-01-13] MEDS ORDERED: ZIPRASIDONE 20 MG VIAL IM ONE (20:28)
[2022-01-13] MEDS ORDERED: WATER FOR INJECTION, STERILE 10 ML IV ONE (20:28)
[2022-01-13] MEDS: ACETAMINOPHEN TAB 325 MG TAB PO PRN (20:49)
[2022-01-13] MEDS ORDERED: cloZAPine 25 MG TAB PO SCH (21:00)
[2022-01-14] MEDS: NICOTINE 14MG/24HR PATCH TRANSDERM SCH (07:45)
[2022-01-14] MEDS: BENZTROPINE MESYLATE 1 MG TAB PO SCH ×2 (07:46→19:42)
[2022-01-14] MEDS ORDERED: cloZAPine 25 MG TAB PO SCH ×2 (09:00→21:00)
[2022-01-14] MEDS: hydrOXYzine pamoate 25 MG CAP PO PRN ×2 (10:57→14:47)
[2022-01-14] MEDS: chlorproMAZINE 25 MG TAB PO PRN (10:57)
--- NOTE | 2022-01-14 13:27 | P.PN ---
Progress Note - Text Progress Note Date: 01/14/22 Interval History: Patient was seen wandering the hallways and was directable and agreeable to speak with development writer in the office. The patient continues to be impulsive and at times disorganized however is able to be redirected. Of note, the patient was agitated after seeing his mother yesterday. He did require a significant amount of redirection in order to calm down. He is unable to fully appreciate the questions asked of him however is denying any suicidal or homicidal ideation, intention, and/or plan. He is denying any auditory or visual hallucinations. He reports no paranoia or other delusions. He has been adherent with his medication and is not reporting any sniffing side effects at this time. Mental Status Exam: General Appearance: Patient appears to be stated age is alert, directable, and cooperative. Obese body habitus. Generally disheveled. Behavior: Patient displays normal psychomotor activity today. Speech: Patient's speech is spontaneous and clear today. Nonlinear and at times difficult to follow. [place]. Mood/Affect: Mood is "I'm good." Affect is expansive but euthymic. Suicidality/Homicidality: Patient denies having any suicidal or homicidal ideation intent or plan. Perceptions: Patient denies any visual hallucinations and denies any auditory hallucinations Though content/process: Patient appears to be grossly disorganized. This appears to be patient's baseline. Memory and concentration: AOX3, grossly intact for the purposes of this session Judgment and insight: Very poor Vital Signs Temp 97.2 F L 01/14/22 06:57 Pulse 116 H 01/14/22 06:57 Resp 18 01/14/22 06:57 BP 147/79 01/14/22 06:57 Pulse Ox 99 01/13/22 03:45 FiO2 Intake & Output 01/13/22 01/14/22 01/14/22 18:59 06:59 18:59 Weight 110 kg Assessment Schizophrenia Developmental disability Tobacco use disorder Cannabis use disorder Plan: -Patient continues to meet criteria for inpatient psychiatric admission for symptom stabilization and safety. Patient is scheduled for court on 01/12/2022. -Medications: Invega Sustenna 234 mg IM was administered on 01/06/2022. Invega Sustenna 156 mg IM will be administered on 01/11/2022. Increase Clozaril to 50 mg in the morning and 100 mg at bedtime for mood stabilization/psychosis Continue Depakote 750 mg by mouth at bedtime for mood stabilization Continue Trazodone 200 mg at bedtime for insomnia Cogentin 1 mg by mouth twice a day for EPS side effects. -When necessary Thorazine and Vistaril for agitation/aggression. Our concern is that benzodiazepines may contribute to the patient's sleep apnea. -CMP ordered. -NRT - nicotine patch and Nicorette gum -SW on board for discharge planning. Encouraged the patient to participate in milieu.
[2022-01-14] MEDS ORDERED: chlorproMAZINE 25 MG/ML 1 ML AMP IM PRN (14:43)
[2022-01-14] MEDS ORDERED: hydrOXYzine HCL 50 MG/ML 1 ML VIAL IM PRN (14:44)
[2022-01-14] MEDS ORDERED: chlorproMAZINE 25 MG TAB PO PRN (14:44)
[2022-01-14] MEDS ORDERED: ZIPRASIDONE 20 MG VIAL IM PRN (14:48)
[2022-01-14] MEDS: MAG HYDROX/AL HYDROX/SIMETH 30 ML CUP PO PRN (15:51)
[2022-01-14] MEDS: ZIPRASIDONE 20 MG CAP PO PRN (15:51)
[2022-01-14] MEDS: NICOTINE GUM (POLACRILEX) 2 MG GUM BUCCAL PRN (18:17)
[2022-01-14] MEDS: DIVALPROEX ER 250 MG TAB.ER.24H PO SCH (19:42)
[2022-01-14] MEDS: traZODone HCL 100 MG TAB PO SCH (19:42)
[2022-01-14] MEDS: MELATONIN 5 MG TABLET PO SCH (19:42)
[2022-01-14] MEDS ORDERED: cloZAPine 100 MG TAB PO SCH (21:00)
[2022-01-15] MEDS: ZIPRASIDONE 20 MG CAP PO PRN (04:11)
[2022-01-15 04:15] VITALS: BP 132/71; PULSE 119; RESP 16; TEMP 96.2
[2022-01-15] MEDS: NICOTINE GUM (POLACRILEX) 2 MG GUM BUCCAL PRN (08:34)
[2022-01-15] MEDS: BENZTROPINE MESYLATE 1 MG TAB PO SCH (08:34)
[2022-01-15] MEDS: hydrOXYzine pamoate 25 MG CAP PO PRN (08:34)
[2022-01-15] MEDS: NICOTINE 14MG/24HR PATCH TRANSDERM SCH (08:36)
[2022-01-15] MEDS ORDERED: cloZAPine 25 MG TAB PO SCH (09:00)
--- NOTE | 2022-01-15 12:46 | P.DS ---
Providers Date of admission: 01/01/22 00:23 Expected date of discharge: 01/15/22 Attending physician: Amadou Eagle MD Consults: 12/31/21 19:08 Consult Physician Routine Consulting Provider: Maite Rojas Consult Reason/Comments: Medical H&P Do you want consulting provider notified?: Yes Primary care physician: Luis Suarez - Discharge Diagnosis(es) (1) Schizophrenia Status: Acute Priority: High (2) Developmental disability Status: Chronic Priority: Medium (3) Tobacco use disorder Status: Chronic Priority: Medium (4) Cannabis use disorder Status: Chronic Priority: Medium Hospital Course: Admission HPI: Patient is a single, unemployed, 26-year-old male with significant history of developmental disability who has a guardian who was transferred from [facility] for suicidal ideation and psychosis. HPI: Patient presented to this hospital on 01/01/2022 after initially presenting at [facility] for psychiatric evaluation. Reportedly, the patient was endorsing suicidal ideation after a verbal altercation with his mother and decided to go to the hospital. He endorsed suicidal thoughts and during his initial assessment there, the patient was noted to be expressing significant psychotic symptoms. He was petitioned and certified. As per certificate, "patient suffers from schizophrenia and is psychotic with rambling thoughts and at times feel suicidal. He is noncompliant with psychiatric medications." Once admitted on the psychiatric unit, the patient was initially noted to be irritable in the milieu and was physically intrusive with another peer. He was however redirected and administered IM medication. On evaluation by this provider, the patient reports that he was staying at home with his mother however felt that he was very annoyed by her and her constant nagging. He states that he felt suicidal and decided to come to the hospital. He is otherwise not reporting any depressive symptoms. It is unclear as to how many times the patient has attempted suicide in the past. He does however appear to be responding to internal stimuli and states that he hears "6 voices." He refuses to further elaborate and appears to be laughing during the psychiatric interview and is difficult to redirect. Patient does admit that he has been non-adherent with any treatment in the outpatient setting and has been non- adherent with any medications. As per pharmacy review, the patient is reportedly not had any of his psychotropic medications filled in 2021 aside from the Cymbalta. A second clinical certificate has been filled out by this provider. PAST PSYCHIATRIC HISTORY: Patient states that he has been recently diagnosed with schizophrenia. The patient's home medications include Cymbalta, Risperdal, and Clozaril however the patient has not had any medications filled in 2021 aside from Cymbalta. The patient has reportedly had multiple inpatient psychiatric admissions however we're uncertain as to his last admission. The patient is not currently open with any outpatient psychiatric services. Unable to determine previous suicide attempts. Hospital course: Upon admission to the unit patient was initially presenting as grossly disorganized, irritable, labile, and delusional. Patient was however directable and agreeable to commence treatment despite requiring a petition and second and first clinical certificate. Patient got along well with other patients on the unit and followed unit protocol. Patient was compliant with the medications and denied any side effects throughout hospital course. Patient was started on Depakote, Risperdal, Klonopin for mood stability. The patient displayed gradual improvement on this regimen and Depakote was increased and Risperdal was transition to Invega sustenna due to his history of nonadherence to treatment. However, the patient had poor sleep due to significant obstructive sleep apnea and the patient began to display irritable and distracted behavior on the unit. The patient was court ordered for mental health treatment and the patient was started on Clozaril to augment his Invega Sustenna. On this regimen of Clozaril and Invega, the patient displayed significant improvement in regards his target symptoms of agitation and psychosis. The patient does have significant developmental delay however has been redirectable. On the day of discharge, the patient is not reporting any suicidal or homicidal ideation, intention, and/plan. He is not reporting any auditory or visual hallucinations. He is denying any paranoia but will occasionally make delusional statements regarding his relationship to certain people on the unit. Despite this, the patient has been calm and redirectable even when irritable. He has been adherent with his medication is not endorsing any significant side effects. Of concern, the patient does have significant sleep apnea and would require an evaluation by a specialist in the outpatient setting to help address this. Sleep apnea make sure due to the patient's impulsivity and restlessness throughout the day. The patient was counseled at length the importance of medication adherence and appropriate outpatient follow-up. Furthermore, the patient was recommended to decrease or stop any tobacco or alcohol or cannabis use. Prior to discharge, family meeting was arranged by social service assistant to answer any questions and ensure safety. He is not reporting any medical issues or concerns at this time and internal medicine evaluated him prior to discharge. Mental status exam: General Appearance: Patient appears to be stated age is alert, pleasant, and cooperative. Patient is in no acute distress and has fair hygiene and grooming Behavior: Patient display some impulsivity and increased psychomotor activity however is directable Speech: Patient's speech is fluent and nonpressured. Mood/Affect: Patient reports their mood is "feeling good bro.", affect is congruent and bright Suicidality/Homicidality: Patient denies having any suicidal or homicidal ideation intent or plan. Perceptions: Patient denies any auditory or visual hallucinations. Though content/process: At times, the patient will make a delusional statement however his redirectable. Memory and concentration: AOX3, grossly intact for the purposes of this session. Can spell "WORLD" backwards correctly. Judgment and insight: Improved with guarded prognosis Impression: Schizophrenia Developmental disability Tobacco use disorder Cannabis use disorder Plan: -Continue with discharge today as patient has improved and stabilized psychiatrically and is not currently an imminent threat to himself and/or others. Patient will remain at chronically elevated risk due to the severity of his mental illness as well as developmental disability. -Continue medications: Invega Sustenna 156 mg IM monthly with his next dose due on 02/08/2022. Clozaril 50 mg in the morning and 100 mg at bedtime for mood stabilization/psychosis - At this time the patient is presenting with the need for dual antipsychotic therapy. Our hope is that if patient remains consistent with clozaril he may stop requiring invega sustenna in the future. This is to be determined by his outpatient psychiatrist. Depakote 750 mg by mouth at bedtime for mood stabilization Trazodone 200 mg by mouth at bedtime for insomnia Cogentin 1 mg by mouth twice a day for EPS side effects -Patient was counseled on the need for medication compliance and appropriate follow-up at mental health and also primary care for medical issues. Patient verbalized understanding and agreed. -Social work to arrange for and conduct family meeting to ensure safety upon discharge and answer any questions/concerns. Social work also to arrange for patients follow up appointments with [facility] for psychiatric care along with follow up with primary care provider. -Patient counseled on abstaining from recreational drugs and marijuana and alcohol. Was informed/educated on the adverse effects on their physical and mental health. Patient verbally agreed and understood. -Patient was instructed to return to the hospital or seek immediate medical care if their psychiatric or medical symptoms do worsen or reoccur. -Psychoeducation and supportive therapy provided to patient. Risks and benefits of pharmacological treatment versus the risks and benefits of nontreatment weight and discussed. Informed consent discussion held. Common side effects of psychotropics discussed such as, but not limited to headache, GI disturbance, sexual dysfunction, movement disorders, sedation, and orthostatic hypotension. Life threatening and blackbox warnings of prescribed medications also discussed. Potential risks of operating a vehicle or heavy machinery discussed with patient at length. Advised on importance of compliance and a reliable and responsible manner. Patient advised to review FDA consumer labeling of all medications prior to taking. Patient verbalized understanding of potential risks, and agrees with current treatment plan. Patient advised to medically contact physician/emergency personnel if any acute changes in condition occur. Vital Signs Temp 96.2 F L 01/15/22 04:14 Pulse 119 H 01/15/22 04:14 Resp 16 01/15/22 04:14 BP 132/71 01/15/22 04:14 Pulse Ox 99 01/13/22 03:45 FiO2 Laboratory Results WBC 8.7 k/uL (3.8-10.6) 01/12/22 10:05 RBC 4.95 m/uL (4.30-5.90) 01/12/22 10:05 Hgb 14.3 gm/dL (13.0-17.5) 01/12/22 10:05 Hct 43.2 % (39.0-53.0) 01/12/22 10:05 MCV 87.3 fL (80.0-100.0) 01/12/22 10:05 MCH 28.8 pg (25.0-35.0) 01/12/22 10:05 MCHC 33.0 g/dL (31.0-37.0) 01/12/22 10:05 RDW 12.5 % (11.5-15.5) 01/12/22 10:05 Plt Count 325 k/uL (150-450) 01/12/22 10:05 MPV 7.4 10/04/22 10:05 Neutrophils % 68 % 01/12/22 10:05 Lymphocytes % 17 % 01/12/22 10:05 Monocytes % 11 % 01/12/22 10:05 Eosinophils % 0 % 01/12/22 10:05 Basophils % 0 % 01/12/22 10:05 Neutrophils # 6.0 k/uL (1.3-7.7) 01/12/22 10:05 Lymphocytes # 1.5 k/uL (1.0-4.8) 01/12/22 10:05 Monocytes # 1.0 k/uL (0-1.0) 01/12/22 10:05 Eosinophils # 0.0 k/uL (0-0.7) 01/12/22 10:05 Basophils # 0.0 k/uL (0-0.2) 01/12/22 10:05 Sodium 137 mmol/L (137-145) 01/11/22 14:04 Potassium 4.1 mmol/L (3.5-5.1) 01/11/22 14:04 Chloride 102 mmol/L (98-107) 01/11/22 14:04 Carbon Dioxide 24 mmol/L (22-30) 01/11/22 14:04 Anion Gap 11 mmol/L 01/11/22 14:04 BUN 11 mg/dL (9-20) 01/11/22 14:04 Creatinine 0.91 mg/dL (0.66-1.25) 01/11/22 14:04 Est GFR (CKD-EPI)AfAm >90 (>60 ml/min/1.73 sqM) 01/11/22 14:04 Est GFR (CKD-EPI)NonAf >90 (>60 ml/min/1.73 sqM) 01/11/22 14:04 Glucose 99 mg/dL (74-99) 01/11/22 14:04 POC Glucose (mg/dL) 84 mg/dL (70-110) 01/06/22 17:31 POC Glu [employer] ID Cora Montesinos 01/06/22 17:[address] Glu mg/dL 98 01/01/22 09:32 Hemoglobin A1c 5.0 % (0.0-6.0) 01/01/22 09:32 Calcium 9.0 mg/dL (8.4-10.2) 01/11/22 14:04 Total Bilirubin 0.4 mg/dL (0.2-1.3) 01/11/22 14:04 Conjugated Bilirubin 0.0 mg/dL (0.0-0.3) 01/01/22 09:32 Unconjugated Bilirubin 0.7 mg/dL (0.0-1.1) 01/01/22 09:32 Delta Bilirubin 0.1 mg/dL (0.0-0.2) 01/01/22 09:32 AST 111 U/L (17-59) H 01/11/22 14:04 ALT 187 U/L (4-49) H 01/11/22 14:04 Alkaline Phosphatase 32 U/L (38-126) L 01/11/22 14:04 Ammonia 36 umol/L (<30) H 01/12/22 10:05 Total Protein 6.1 g/dL (6.3-8.2) L 01/11/22 14:04 Albumin 4.0 g/dL (3.5-5.0) 01/11/22 14:04 Triglycerides 145.00 mg/dL (0.00-149.00) 01/01/22 09:32 Cholesterol 149.00 mg/dL (0.00-200.00) 01/01/22 09:32 LDL Cholesterol, Calc 87.2 mg/dL (0.0-131.0) 01/01/22 09:32 VLDL Cholesterol, Calc 29.00 mg/dL (5.00-40.00) 01/01/22 09:32 HDL Cholesterol 32.80 mg/dL (40.00-60.00) L 01/01/22 09:32 Cholesterol/HDL Ratio 4.54 Ratio 01/01/22 09:32 TSH 2.460 mIU/L (0.465-4.680) 01/01/22 09:32 Valproic Acid 63.4 ug/mL 01/01/22 09:32 Allergies Allergy/AdvReac Type Severity Reaction Status Date / Time No Known Allergies Allergy Verified 01/01/22 00:54 Health Concerns: Pt needs to see a phsyician to rule out sleep apnea Patient Condition at Discharge: Stable Plan - Discharge Summary Discharge Rx Participant: No New Discharge Prescriptions: New cloZAPine [Clozaril] 50 mg PO BID 30 Days tab Benztropine Mesylate [Cogentin] 1 mg PO BID 30 Days tab Divalproex ER [Depakote ER] 750 mg PO HS 30 Days tab traZODone HCL [Desyrel] 200 mg PO HS 30 Days tab Nicotine 14Mg/24Hr Patch [Habitrol] 1 patch TRANSDERM DAILY 15 Days patch cloZAPine [Clozaril] 100 mg PO HS 30 Days tab Melatonin 5 mg PO HS 30 Days tab Albuterol Inhaler [Ventolin Hfa Inhaler] 2 puff INHALATION RT-QID PRN 15 Days each PRN Reason: Shortness Of Breath Or Wheezing Paliperidone IM [Invega Sustenna] 156 mg IM QMONTHLY #1 each cloZAPine [Clozaril] 50 mg PO DAILY 30 Days tab Discontinued DULoxetine HCL 20 mg PO BID Discharge Medication List Albuterol Inhaler [Ventolin Hfa Inhaler] 2 puff INHALATION RT-QID PRN 15 Days each 01/14/22 [Rx] Benztropine Mesylate [Cogentin] 1 mg PO BID 30 Days tab 01/14/22 [Rx] Divalproex ER [Depakote ER] 750 mg PO HS 30 Days tab 01/14/22 [Rx] Melatonin 5 mg PO HS 30 Days tab 01/14/22 [Rx] Nicotine 14Mg/24Hr Patch [Habitrol] 1 patch TRANSDERM DAILY 15 Days patch 01/14/22 [Rx] Paliperidone IM [Invega Sustenna] 156 mg IM QMONTHLY #1 each 01/14/22 [Rx] cloZAPine [Clozaril] 50 mg PO BID 30 Days tab 01/14/22 [Rx] traZODone HCL [Desyrel] 200 mg PO HS 30 Days tab 01/14/22 [Rx] cloZAPine [Clozaril] 50 mg PO DAILY 30 Days tab 01/15/22 [Rx] cloZAPine [Clozaril] 100 mg PO HS 30 Days tab 01/15/22 [Rx] Follow up Appointment(s)/Referral(s): Masha GREEN([place]) [Other] - 01/20/22 2:00 pm (With Jennifer) Robin Kennedy MD [STAFF PHYSICIAN] - 1 Week Patient Instructions/Handouts: Sleep Apnea (GEN), Schizophrenia (DC) Activity/Diet/Wound Care/Special Instructions: Avoid the use of street drugs and alcohol. Take all prescriptions as prescribed. When you are in need of refills on your medications, please contact your medical provider and/or outpatient psychiatrist to have this done. Please go to scheduled outpatient appointment for aftercare treatment. If symptoms return or become worse, call the crisis line at and/or go to the nearest emergency room for evaluation. Discharge Disposition: HOME SELF-CARE
== END 2022-01-15 11:27 | disposition home or self-care (01) | DRG 885 ==
LOC: 3MHU 01-01 00:23
PROVIDERS: ADMIT Psychiatry & Neurology Psychiatry; ATTEND Psychiatry & Neurology Psychiatry
DX: F20.9 Schizophrenia, unspecified (principal); R45.851 Suicidal ideations; F12.90 Cannabis use, unspecified, uncomplicated; F17.210 Nicotine dependence, cigarettes, uncomplicated; F41.9 Anxiety disorder, unspecified; G47.00 Insomnia, unspecified; G47.33 Obstructive sleep apnea (adult) (pediatric); J45.909 Unspecified asthma, uncomplicated; Z79.899 Other long term (current) drug therapy; Z91.14 Patient's other noncompliance with medication regimen
CPT/HCPCS: 80053; 80061; 80164; 82140; 82248; 83036; 84443; 85025; 93005